=== PATIENT | female | born 1985 | race Caucasian/White ===

== ENCOUNTER 2019-12-31 08:09 | Outpatient (CLI) | payer OTHER, SELFPAY ==
--- NOTE | 2019-12-31 08:28 | ECG_ITS ---
Measurements Intervals [place] Rate: 89 P: 41 MA: 165 QRS: 40 QRSD: 78 T: 21 QT: 335 QTc: 408 Interpretive Statements SINUS RHYTHM BASELINE ARTIFACT- I, II, III, AVR, AVL, AVF NORMAL ECG Electronically Signed On 12-31-2019 8:53:44 CDT by Jeffrey Moise D.O.
== END 2019-12-31 08:10 | disposition home or self-care (01) ==
PROVIDERS: Visit Provider Obstetrics & Gynecology
DX: Z01.818 Encounter for other preprocedural examination (principal); N94.6 Dysmenorrhea, unspecified; Z87.42 Personal history of other diseases of the female genital tract
CPT/HCPCS: 36415; 86850; 86900; 86901; 93005

== ENCOUNTER 2020-01-05 00:40 | Outpatient (CLI) | payer OTHER, SELFPAY ==
[2020-01-05 18:37] LABS: SARS-CoV-2 RNA PCR Negative
== END 2020-01-05 00:41 | disposition home or self-care (01) ==
LOC: ANHCOVIDDT 00:41
PROVIDERS: Visit Provider Obstetrics & Gynecology
DX: Z01.812 Encounter for preprocedural laboratory examination (principal); Z20.828 Contact with and (suspected) exposure to other viral communicable diseases
CPT/HCPCS: 87635; C9803; U0003

== ENCOUNTER 2020-01-08 00:56 | Day surgery (SDC) | payer OTHER, SELFPAY ==
[2019-12-25 16:40] VITALS: BMI 39.0
[2020-01-08] VITALS (15 sets, daily range): BP systolic 105–128; BP diastolic 56–82; PULSE 70–107; RESP 13–20; TEMP 36.1–36.9; O2SAT 94–100
--- NOTE | 2020-01-08 06:53 | WPDANESEPPF ---
Anes - Initial Pre Proc Eval Procedure: Operation Date: 01/08/20 07:30 Proposed Procedures p Total Laparoscopic Hysterectomy With Right Salpingo-Oophorectomy - Glenna Zhang MD Date/Time: 01/08/20 06:53 Surgeon: Glenna Zhang MD Pre Op Diagnosis: Dymenorrhea Patient Data Age: 34 Gender: F Height: 5 ft 3 in Weight: 100 kg Allergies Allergy/AdvReac Type Severity Reaction Status Date / Time amoxicillin Allergy Intermediate Rash Verified 12/25/19 16:14 clindamycin Allergy Intermediate hives Verified 12/25/19 16:14 Penicillins Allergy Intermediate Hives / Verified 12/25/19 16:14 Red Face azithromycin AdvReac Mild diarrhea Verified 12/25/19 16:14 Home Medications Medication Instructions Recorded Confirmed Type AZO Urinary Tract Defense 1 caplet PO DAILY 12/25/19 12/25/19 History ascorbate calcium (vitamin C) 500 mg PO DAILY 12/25/19 12/25/19 History cyclobenzaprine 10 mg PO PRN PRN 12/25/19 12/25/19 History inulin-chromium picolinate [Fiber 1 tablet PO DAILY 12/25/19 12/25/19 History Select Gummies] magnesium 250 mg PO DAILY 12/25/19 12/25/19 History multivit with min-folic acid 1 mcg PO DAILY 12/25/19 12/25/19 History [Adult Multivitamin Gummies] omeprazole 20 mg PO PRN PRN 12/25/19 12/25/19 History vitamin B complex [B 1 tablet PO DAILY 12/25/19 12/25/19 History Complex-Vitamin B12] Patient hx anesthesia problems: none Family hx anesthesia problems: none PMFSH Past Medical History Medical History Asthma GERD (gastroesophageal reflux disease) Seizure disorder Tobacco abuse Social History Social History Smoking status: Heavy tobacco smoker Tobacco type: cigarettes Second hand tobacco smoke exposure: No Additional smoking assessment comments: 1 ppd x 22 years Alcohol intake: current Drinks per week: 1 Alcohol use details: 1 drink every 3 weeks Substance use: never Living arrangements: with family Spiritual care concerns: No Anes - Eval Final PreProcedure Day of Procedure 01/08/20 06:53 Patient weight: obese Heart: regular rate and rhythm Lungs: decreased breath sounds Airway: Mallampati scale class II Neurological: alert and oriented Last oral intake: >/= 8 hours ASA classification: III Emergent: no Anesthetic plan: proceed Anesthesia type and monitoring: general ETT and standard monitoring Informed Consent: The patient's anesthetic plan and its attendant risks and benefits were discussed with the patient/family/POA. Questions were solicited and answers provided to the satisfaction of the patient/family/POA.
[2020-01-08] MEDS: ACETAMINOPHEN 500 MG TABLET 1000 MG PO (07:00)
[2020-01-08] MEDS: KETOROLAC 15 MG/ML VIAL (*BKC) IV PUSH (07:00)
[2020-01-08] MEDS: LACTATED RINGERS 1,000 ML 30 ML IV CONT ×2 (07:05→09:20)
--- NOTE | 2020-01-08 07:09 | WPDHPUPDATE1 ---
History and Physical Update Update Date/Time: 01/08/20 07:09 History and Physical has been reviewed, including an updated exam of the patient. There are NO changes in the patient's condition. Risks, benefits, and alternatives have been discussed and questions answered. Patient agrees to proceed with procedure.
[2020-01-08] MEDS: SCOPOLAMINE 1.5 MG PATCH TRANSDERM (07:20)
[2020-01-08] MEDS: ceFAZolin 2 GM/D5W 50 ML 2 GM/50 ML BAG IVPB (07:29)
--- NOTE | 2020-01-08 09:24 | P.OP_ITS ---
Procedure Note - Detailed Date of procedure: 01/08/20 Pre-op diagnosis: Dymenorrhea Severe menorrhagia, pelvic pain, right ovarian cyst Post-op diagnosis: same Procedure performed: Total laparoscopic hysterectomy right salpingo- oophorectomy Description of procedure: The patient was taken to the operating room. She was prepped and draped in the dorsal lithotomy position. A speculum was placed in the vagina. The cervix was grasped with a tenaculum. Stay sutures were placed at 3 and 9:00 a.m. of 0 Vicryl. The stay sutures were brought through the Nini up. The DIONICIO manipulator was placed in the vagina with a fixed Nini cup. The cup was then pushed up around the cervix. The sutures were tied to the handle of the DIONICIO manipulator. A 5 mm incision was made on the abdominal skin of the left upper quadrant using a scalpel. A 5 mm trocar was inserted into the intra-abdominal cavity under direct visualization the scope. Pneumoperitoneum was achieved. An 11 mm incision was made in the left lower quadrant of the abdomen with a scalpel. A 11 mm trocar was inserted into the intra-abdominal cavity under direct visualization the scope. A 5 mm periumbilical incision was made. A 5 mm scope was placed into the intra-abdominal cavity under direct visualization of the scope. The ureters were identified. The ureters were observed to be away from the infundibulopelvic ligaments. The infundibulopelvic ligament was isolated, cauterized, and transected with LigaSure cautery On the right the suspensory ligament of the ovary was cauterized and transected on the left along with the fallopian tube and round ligament. The para ovarian tissue along the pelvic sidewall was cauterized and transected On the right using the ligature cautery. The round ligaments were cauterized and transected bilaterally with LigaSure cautery. The broad ligaments were cauterized and transected along the lateral aspects of the uterus down the level of the uterine arteries. A bladder flap was created using sharp and blunt dissection. The ureters were dissected out bilaterally down to the level of the uterine arteries. The could be visualized from the pelvic brim down the uterine arteries. Staying very close to the cervix the parametrium was cauterized transected in a stepwise fashion down to the level of the Nini cup. The Bladder flap was moved distally over the Nini cup using sharp and blunt dissection. The cup was visualized and a complete 360 degree papillary around the cervix. An incision was made with unipolar cautery down under the Nini cup creating a colpotomy incision all the way around the cerv ix. The uterus tubes and ovaries were taken out through the vagina. A pneumo occluder was placed in the vagina. The vagina was closed with 0 V lock suture in a running fashion. The ureters were identified again and found to be intact elevated and the uterine arteries. The pelvis was irrigated with a copious amount of antibiotic irrigation. The pneumoperitoneum was reduced. The trocars were removed. The skin was closed subcuticular 4 Monocryl covered with Dermabond. The pneumo occluder was removed from the vagina. The vagina was irrigated with Betadine. The patient tolerated the procedure well. She was taken to the recovery room in stable condition. Sponge lap and needle counts were correct x2. Anesthesia: GETA Surgeon: Glenna Zhang MD Estimated blood loss (mL): 200 Drains: No Packing: No Pathology: yes Complications: No immediate complications Condition: stable Disposition: PACU Findings: Grossly normal-appearing uterus tubes and left ovary. Cystic right ovary
[2020-01-08] MEDS: fentaNYL CITRATE INJ (*CRX) 100 MCG/2 ML VIAL 25 MCG IV PUSH ×3 (09:34→10:01)
[2020-01-08] MEDS: HYDROcodone/acetaminophen (*CRX) 10-325 MG TABLET 1 TAB PO (11:23)
[2020-01-08] MEDS: HYDROcodone/acetaminophen (*CRX) 5-325 MG TABLET 1 TAB PO ×2 (16:39→22:40)
[2020-01-08] MEDS: IBUPROFEN 600 MG TABLET PO ×2 (16:40→22:40)
[2020-01-09 03:00] VITALS: BP 110/71; PULSE 102; RESP 16; TEMP 36.7
[2020-01-09] MEDS: HYDROcodone/acetaminophen (*CRX) 5-325 MG TABLET 1 TAB PO (06:56)
[2020-01-09] MEDS: IBUPROFEN 600 MG TABLET PO (06:57)
[2020-01-09] MEDS: ASCORBIC ACID 500 MG TABLET PO (06:58)
[2020-01-09] MEDS: VITAMIN B COMPLEX CAPSULE 1 CAP PO (06:58)
[2020-01-09] MEDS: MULTIVITS W-FE,MIN CHEWABLE TABLET 1 TABLET PO (06:58)
[2020-01-09 08:10] VITALS: BP 126/77; PULSE 90; RESP 16; TEMP 36.6; O2SAT 97
--- NOTE | 2020-01-09 10:13 | PC.NURSE ---
Offered pt the flu shot before discharge from hospital. Pt declines.
--- NOTE | 2020-01-09 11:06 | WPDANESPN ---
Anes - Prog Note Post-Op Date/Time: 01/09/20 11:06 Cardiovascular status: normal Respiratory status: normal Airway patency: baseline Mental status: baseline Post-Op hydration status: normal Vital Signs: Last Vital Signs Temp 36.6 C 01/09/20 08:10 Pulse 90 01/09/20 08:10 Resp 16 01/09/20 08:10 BP 126/77 01/09/20 08:10 Pulse Ox 97 01/09/20 08:10 Pain Score (VAS): 2/10 Post-procedural complaints: none Patient Feedback: Patient satisfied with anesthetic care.
--- NOTE | 2020-01-09 13:12 | PM.OBPNVD ---
OB - PN: Subj Subjective Date/time seen: 01/09/20 13:12 OB - PN A/P Time Spent With Patient Time: Total time spent is greater than 50% in coordination of care (as documented) at patient's floor/unit and/or counseling patient: Time with patient: 15 - 25 minutes Exam Const: General: cooperative, healthy appearing, comfortable and no acute distress Resp: Auscultation: no crackles, no rales, no rhonchi and no wheezes Cardio: Rhythm: regular rhythm Heart sounds: no click and no murmurs GI: Inspection: non-distended Auscultation: normal bowel sounds Other: Incisions - CDI Extrem: General: normal to inspection, no pedal edema and no calf tenderness
== END 2020-01-09 13:37 | disposition home or self-care (01) ==
LOC: ANHSURGERY 06:28 → ANHOB2 11:14
PROVIDERS: Visit Provider Obstetrics & Gynecology
PROC: 0UT9FZZ Resection of Uterus, Via Natural or Artificial Opening With Percutaneous Endoscopic Assistance (ICD-10-PCS; principal; 2020-01-08 07:30)
DX: N80.0 Endometriosis of uterus (principal); D26.0 Other benign neoplasm of cervix uteri; N83.01 Follicular cyst of right ovary; K21.9 Gastro-esophageal reflux disease without esophagitis; J45.909 Unspecified asthma, uncomplicated; F17.200 Nicotine dependence, unspecified, uncomplicated
CPT/HCPCS: 58571; 87635; 88307; 99199; A9270; C9803; J0690; J1100; J1885; J2250; J2405; J2704; J2710; J3010; J7030; J7120; U0003

== ENCOUNTER 2020-08-02 07:51 | Outpatient (CLI) | payer OTHER, SELFPAY ==
[2020-08-02 08:36] LABS: Basophils Absolute Auto 0.1 K/mm3 (0.0-0.1); Basophils Percent Auto 0.7 % (0.2-1.2); Eosinophils Absolute Auto 0.3 K/mm3 (0-0.3); Eosinophils Percent Auto 2.3 % (0-4.4); Hematocrit 40.8 % (37.0-47.0); Hemoglobin 13.6 g/dL (12.0-15.0); Immature Granulocyte Absolute 0.08 K/mm3 (0.00-0.031); Immature Granulocyte Percent A 0.6 % (0-0.5); Lymphocytes Absolute Auto 3.34 K/mm3 (0.9-3.2); Lymphocytes Percent Auto 26.1 % (18.3-44.2); Mean Corpuscular HGB Conc 33.3 g/dl (32-36); Mean Corpuscular Hemoglobin 29.2 pg (26-34); Mean Corpuscular Volume 87.6 fl (80-100); Mean Platelet Volume 9.1 fl (7.4-10.4); Monocytes Absolute Auto 1.1 K/mm3 (0.1-0.6); Monocytes Percent Auto 8.7 % (2.6-8.5); Neutrophils Absolute Auto 7.9 K/mm3 (1.3-6.7); Neutrophils Percent Auto 61.6 % (45.5-73.1); Platelet Count Result 322 k/mm3 (150-375); Red Blood Count 4.66 M/mm3 (4.2-5.4); White Blood Count 12.8 K/mm3 (4.5-10.0)
[2020-08-02 08:49] LABS: Alanine Aminotransferase 19 U/L (4-35); Albumin Level 4.4 g/dL (3.5-5.1); Alkaline Phosphatase 70 U/L (38-126); Anion Gap 10 mmol/L (8-16); Aspartate Amino Transferase 34 U/L (14-36); Bilirubin,Total 0.4 mg/dL (0.2-1.3); Blood Urea Nitrogen 12 mg/dL (7-17); Calcium 9.3 mg/dL (8.4-10.2); Carbon Dioxide 21 mmol/L (22-30); Chloride 108 mmol/L (98-107); Cholesterol 169 mg/dL (0-200); Estimated Glomerular Filt Rate > 60; Glucose 111 mg/dL (65-105); HDL Direct 40 mg/dL; Potassium 4.2 mmol/L (3.4-5.0); Sodium 139 mmol/L (137-145); Triglycerides 177 mg/dL (<150)
[2020-08-02 09:00] LABS: LDL Cholesterol Direct 93 mg/dL
[2020-08-02 09:55] LABS: Folic Acid 14.6 ng/mL (2.76->20)
[2020-08-02 12:30] LABS: Vitamin D 25 Hydroxy 34.7 ng/mL
== END 2020-08-02 07:52 | disposition home or self-care (01) ==
PROVIDERS: PCP Nurse Practitioner Family; Visit Provider Nurse Practitioner Family
DX: Z00.00 Encounter for general adult medical examination without abnormal findings (principal); E55.9 Vitamin D deficiency, unspecified
CPT/HCPCS: 36415; 80053; 80061; 82306; 82607; 82746; 84443; 85025

== ENCOUNTER 2020-09-26 16:00 | Outpatient (CLI) | payer OTHER, SELFPAY ==
--- NOTE | 2020-10-13 10:47 | WPDHOMESLEEP ---
Sleep Study - Home Unattended Date of Study: 09/26/20 Ordering Provider: Edith Reynolds NP Interpreting Provider: Donna Knapp MD Home Sleep Study Type: Watch PAT Height: 1.6 m Weight: 93.894 kg Body Mass Index: 36.6 Neck Circumference (inches): 15.25 [place]: 15 Reason for Sleep Study Hypersomnia, snoring, nonrestorative sleep Sleep History Iris Orantes is a 35 year old female with poor quality sleep. She never feels that she gets enough sleep. Her body aches all over. She wakes up with headaches at least 3 days out of the week. Several family members have obstructive sleep apnea. She occasionally awakens from sleep feeling short of breath. She occasionally awakens at night with heartburn, belching or coughing. She frequently snores and she frequently snores loudly enough that others complain. She occasionally has trouble sleeping with a cold. She rarely wakes up gasping for breath at night. She frequently sweats excessively at night. She occasionally notices her heart pounding or beating irregularly at night. She occasionally falls asleep during the day. She rarely falls asleep involuntarily. She occasionally falls asleep while driving. She does not fall asleep while exerting physical effort. She frequently has loss of muscle tone with strong emotion. She constantly has daytime difficulties due to excessive sleepiness. She does not feel paralyzed on waking or falling asleep. She constantly has vivid dreamlike scenes upon awakening or falling asleep. She does not feel afraid to go to sleep. She constantly has nightmares, constantly remembers her dreams and constantly has racing thoughts. She constantly feels sad, depressed and anxious. She constantly has muscular tension. She constantly notices parts of her body jerking and she constantly kicks at night. She constantly has crawling and aching feelings in her legs and leg pain during the night. She occasionally has morning jaw pain. She rarely grinds her teeth during sleep. She constantly is bothered by pain during the day. She frequently is awakened by pain during the night. She constantly wakes up feeling stiff in the morning. She constantly wakes up with sore achy muscles and pain in the neck and spine. She has fatigue and depression. She reports a 25 lb weight loss in the last year. normal bedtime is 9:00 p.m. falling asleep within 30 minutes but occasionally it takes as long as an hour for her to fall asleep. She typically wakes 10-12 times at night. She will go to the bathroom, get a drink, sometimes take her dogs outside. She wakes for the day at 4:00 a.m.. On the weekends she goes to bed slightly later, between 10 and 11:00 p.m. and wakes between 5 and 7 in the morning. She does not have a social life because of her excessive sleepiness. Habits: Tobacco 1 pack a day. Caffeine 2 cups, 20 oz each. Alcohol 3-4 beverages a week. No recreational drugs. [facility] Past Medical History Medical History (Updated 10/13/20 @ 11:02 by Donna Knapp MD) Arthritis Asthma BMI 37.0-37.9, adult Depression Dog bite of chin Dog bite of extremity Dog bite of forearm Eczema Fatty liver Frequent headaches GERD (gastroesophageal reflux disease) Hypersomnia IBS (irritable bowel syndrome) Seasonal allergies Seizure disorder Tobacco abuse Vitamin D deficiency Surgical History Surgical History (Updated 10/13/20 @ 10:54 by Donna Knapp MD) History of hysterectomy History of rotator cuff surgery Family History Family History (Updated 10/13/20 @ 10:54 by Donna Knapp MD) Father Diabetes mellitus Hypertension Mother Asthma Diabetes mellitus Hypertension Depression Heart disease Sibling Asthma Grandparent Diabetes mellitus Hypertension Heart disease Grandparent Hypertension Heart disease Other Obstructive sleep apnea Social History Social History Smoking s
[2020-10-13 11:14] VITALS: BMI 36.6
== END 2020-09-26 16:07 | disposition home or self-care (01) ==
LOC: ANHCSM 09-29 10:00
PROVIDERS: PCP Nurse Practitioner Family; Visit Provider Nurse Practitioner Family
DX: G47.31 Primary central sleep apnea (principal); G47.10 Hypersomnia, unspecified; R06.83 Snoring; Z68.36 Body mass index [BMI] 36.0-36.9, adult
CPT/HCPCS: 95800

== ENCOUNTER → 2020-11-06 08:55 | Outpatient (CLI) | payer OTHER, SELFPAY ==
--- NOTE | 2020-11-30 20:25 | WPDSLEEPSTUD ---
Sleep Study Date of Study: 11/06/20 Ordering Provider: Edith Reynolds NP Interpreting Physician: Donna Knapp MD Sleep Study Type: CPAP Titration Height: 1.6 m Weight: 94.347 kg Body Mass Index: 36.8 Neck Circumference (inches): 15.25 [place]: 15 Reason for Sleep Study Hypersomnia 09/26/2020 mild central sleep apnea diagnosed on home sleep test/ WatchPat, central central apnea with an AHI of 8.5, desaturation to 88%, snoring, central AHI is 6.8, now here for a CPAP titration. Sleep History Iris Orantes is a 35 year old female with poor quality sleep. She never feels that she gets enough sleep. Her body aches all over. She wakes up with headaches at least 3 days out of the week. Several family members have obstructive sleep apnea. She occasionally awakens from sleep feeling short of breath. She occasionally awakens at night with heartburn, belching or coughing. She frequently snores and she frequently snores loudly enough that others complain. She occasionally has trouble sleeping with a cold. She rarely wakes up gasping for breath at night. She frequently sweats excessively at night. She occasionally notices her heart pounding or beating irregularly at night. She occasionally falls asleep during the day. She rarely falls asleep involuntarily. She occasionally falls asleep while driving. She does not fall asleep while exerting physical effort. She frequently has loss of muscle tone with strong emotion. She constantly has daytime difficulties due to excessive sleepiness. She does not feel paralyzed on waking or falling asleep. She constantly has vivid dreamlike scenes upon awakening or falling asleep. She does not feel afraid to go to sleep. She constantly has nightmares, constantly remembers her dreams and constantly has racing thoughts. She constantly feels sad, depressed and anxious. She constantly has muscular tension. She constantly notices parts of her body jerking and she constantly kicks at night. She constantly has crawling and aching feelings in her legs and leg pain during the night. She occasionally has morning jaw pain. She rarely grinds her teeth during sleep. She constantly is bothered by pain during the day. She frequently is awakened by pain during the night. She constantly wakes up feeling stiff in the morning. She constantly wakes up with sore achy muscles and pain in the neck and spine. She has fatigue and depression. She reports a 25 lb weight loss in the last year. normal bedtime is 9:00 p.m. falling asleep within 30 minutes but occasionally it takes as long as an hour for her to fall asleep. She typically wakes 10-12 times at night. She will go to the bathroom, get a drink, sometimes take her dogs outside. She wakes for the day at 4:00 a.m.. On the weekends she goes to bed slightly later, between 10 and 11:00 p.m. and wakes between 5 and 7 in the morning. She does not have a social life because of her excessive sleepiness. Habits: Tobacco 1 pack a day. Caffeine 2 cups, 20 oz each. Alcohol 3-4 beverages a week. No recreational drugs. [facility] Past Medical History Medical History (Updated 10/13/20 @ 11:02 by Donna Knapp MD) Arthritis Asthma BMI 37.0-37.9, adult Depression Dog bite of chin Dog bite of extremity Dog bite of forearm Eczema Fatty liver Frequent headaches GERD (gastroesophageal reflux disease) Hypersomnia IBS (irritable bowel syndrome) Seasonal allergies Seizure disorder Tobacco abuse Vitamin D deficiency Surgical History Surgical History (Updated 10/13/20 @ 10:54 by Donna Knapp MD) History of hysterectomy History of rotator cuff surgery Family History Family History (Updated 10/13/20 @ 10:54 by Donna Knapp MD) Father Diabetes mellitus Hypertension Mother Asthma Diabetes mellitus Hypertension Depression Heart disease Sibling Asthma Grandparent Diabetes mellitus Hypertension Heart disease Grandparent Hypertensio
[2020-11-30 20:27] VITALS: BMI 36.8
== END ==
PROVIDERS: PCP Nurse Practitioner Family; Visit Provider Nurse Practitioner Family
DX: G47.31 Primary central sleep apnea (principal)
CPT/HCPCS: 95811

== ENCOUNTER 2021-02-10 07:16 | Outpatient (CLI) | payer OTHER, SELFPAY ==
[2021-02-10 08:20] LABS: Hemoglobin A1C 5.8 % (<5.7)
[2021-02-10 08:22] LABS: Anion Gap 11 mmol/L (8-16); Blood Urea Nitrogen 13 mg/dL (7-17); Calcium 9.9 mg/dL (8.4-10.2); Carbon Dioxide 25 mmol/L (22-30); Chloride 104 mmol/L (98-107); Estimated Glomerular Filt Rate > 60; Glucose 105 mg/dL (65-110); Potassium 4.3 mmol/L (3.4-5.0); Sodium 140 mmol/L (137-145)
[2021-02-13 07:17] LABS: FSH 7.4 mIU/mL (***); LH 5.4 mIU/mL (***)
[2021-02-14 13:59] LABS: Testosterone Free 4.9 pg/mL (0.1-6.4); Testosterone Total 24 ng/dL (2-45)
[2021-02-17 17:57] LABS: Estradiol, Ultrasensitive 21 pg/mL
== END 2021-02-10 07:17 | disposition home or self-care (01) ==
LOC: ANHLAB 07:18
PROVIDERS: PCP Nurse Practitioner Family; Visit Provider Nurse Practitioner Family
DX: R73.01 Impaired fasting glucose (principal); N95.1 Menopausal and female climacteric states
CPT/HCPCS: 36415; 80048; 82670; 83001; 83002; 83036; 84402; 84403

== ENCOUNTER 2021-10-08 07:33 | Outpatient (CLI) | payer OTHER, SELFPAY ==
[2021-10-08 09:33] LABS: Basophils Absolute Auto 0.1 K/mm3 (0.0-0.1); Basophils Percent Auto 0.7 % (0.2-1.2); Eosinophils Absolute Auto 0.3 K/mm3 (0-0.3); Eosinophils Percent Auto 1.9 % (0-4.4); Hemoglobin 14.2 g/dL (12.0-15.0); Immature Granulocyte Absolute 0.07 K/mm3 (0.00-0.031); Immature Granulocyte Percent A 0.5 % (0-0.5); Lymphocytes Absolute Auto 3.59 K/mm3 (0.9-3.2); Lymphocytes Percent Auto 27.8 % (18.3-44.2); Mean Corpuscular HGB Conc 33.8 g/dl (32-36); Mean Corpuscular Hemoglobin 29.6 pg (26-34); Mean Corpuscular Volume 87.7 fl (80-100); Mean Platelet Volume 9.8 fl (7.4-10.4); Monocytes Percent Auto 7.6 % (2.6-8.5); Neutrophils Absolute Auto 7.9 K/mm3 (1.3-6.7); Neutrophils Percent Auto 61.5 % (45.5-73.1); Platelet Count Result 349 k/mm3 (150-375); Red Blood Count 4.79 M/mm3 (4.2-5.4); Red Cell Distribution Width 12.8 % (11.5-14.5); White Blood Count 12.9 K/mm3 (4.5-10.0)
[2021-10-08 09:49] LABS: Anion Gap 7 mmol/L (8-16); Blood Urea Nitrogen 13 mg/dL (7-17); Calcium 9.1 mg/dL (8.4-10.2); Carbon Dioxide 25 mmol/L (22-30); Chloride 106 mmol/L (98-107); Estimated Glomerular Filt Rate > 60; Glucose 94 mg/dL (65-110); Potassium 4.3 mmol/L (3.4-5.0); Sodium 138 mmol/L (137-145)
[2021-10-08 09:52] LABS: Hemoglobin A1C 5.4 % (<5.7)
== END 2021-10-08 07:34 | disposition home or self-care (01) ==
PROVIDERS: PCP Nurse Practitioner Family; Visit Provider Family Medicine
DX: R73.01 Impaired fasting glucose (principal)
CPT/HCPCS: 36415; 80048; 83036; 85025

== ENCOUNTER 2021-11-30 04:41 | Emergency (ER) | payer OTHER, SELFPAY ==
[2021-11-30 04:45] VITALS: BP 147/92; PULSE 94; RESP 17; TEMP 36.5; O2SAT 98
--- NOTE | 2021-11-30 05:02 | ED.DENTAL ---
HPI - Dental/Oral General Chief complaint: Dental/Oral Stated complaint: toothache Time Seen by Provider: 11/30/21 04:57 History of Present Illness HPI Narrative: 36-year-old female presents emergency room secondary to dental pain. She had a redo of a root canal to the left upper molar last week. Now she is having increasing pain to the point she cannot tolerate it. She is had some significant issues with this area of her teeth. 1 time she had such an infection that got into the bone . He was placed on 3 different antibiotics. She is currently taking ciprofloxacin. She states she been taking Tylenol and Advil to try to help with the pain but is unable to control the pain at this time. Pain is hurting on the way up to the left side of her cheek. Denies any chills or fevers. She drove her self here to the emergency department. Root canal was done by a local practitioner. Related Data Home Medications Medication Instructions Recorded Confirmed albuterol sulfate 90 mcg/actuation 1 puff inhalation Q4H PRN 07/29/20 10/09/21 aerosol inhaler Shortness Of Breath ciprofloxacin HCl 500 mg tablet mg 11/30/21 estradiol 2 mg tablet mg 11/30/21 Allergies Allergy/AdvReac Type Severity Reaction Status Date / Time amoxicillin Allergy Intermediate Rash Verified 11/30/21 04:49 clindamycin Allergy Intermediate hives Verified 11/30/21 04:49 Penicillins Allergy Intermediate Hives / Verified 11/30/21 04:49 Red Face azithromycin AdvReac Mild diarrhea Verified 11/30/21 04:49 Review of Systems Review of Systems: CONSTITUTIONAL: Denies fever, chills, or sweats. EYES: Denies visual changes, redness, or discharge. ENT: Denies rhinorrhea, congestion, sore throat, or otalgia. Severe tooth ache left upper molar CARDIOVASCULAR: Denies chest pain, palpitations, or edema. RESPIRATORY: Denies cough or dyspnea. GASTROINTESTINAL: Denies abdominal pain, nausea, vomiting, or diarrhea. GENITOURINARY: Denies dysuria or hematuria. SKIN: Denies rash or itching. MUSCULOSKELETAL: Denies back pain, joint pain, or myalgia. NEUROLOGIC: Denies headache, numbness, or weakness. PSYCHIATRIC: Denies anxiety or depression. [facility] Past Medical History Medical History Anxiety Arthritis Asthma BMI 32.0-32.9,adult BMI 37.0-37.9, adult Depression Dog bite of chin Dog bite of extremity Dog bite of forearm Eczema Elevated fasting glucose Fatty liver Frequent headaches GERD (gastroesophageal reflux disease) Hyperlipidemia Hypersomnia IBS (irritable bowel syndrome) Leukocytosis Menopausal symptoms Pain, joint, multiple sites Seasonal allergies Seizure disorder Tobacco abuse Vitamin D deficiency Surgical History Surgical History History of hysterectomy History of rotator cuff surgery Family History Family History Father Diabetes mellitus Hypertension Mother Asthma Diabetes mellitus Hypertension Depression Heart disease Sibling Asthma Grandparent Diabetes mellitus Hypertension Heart disease Grandparent Hypertension Heart disease Other Obstructive sleep apnea Social History Social History Tobacco type: cigarettes Second hand tobacco smoke exposure: No Additional smoking assessment comments: 1 ppd x 22 years Alcohol intake: current Drinks per week: 1 Alcohol use details: 1 drink every 3 weeks Substance use: never Spiritual care concerns: No Exam Narrative: APPEARANCE: Well appearing, no pain or distress, well-nourished. Head Normocephalic and atraumatic. EYES: PERRLA/EOMI, conjunctivae clear. NOSE: Normal with no drainage EARS:TMS clear with [place], with good light reflex. THROAT: Pharynx clear, no exudate. Tenderness to the left upper molar. Some tenderness to the left cheek. No absc
[2021-11-30] MEDS: KETOROLAC (*BKC) 60 MG/2 ML VIAL IM (05:06)
== END 2021-11-30 05:53 | disposition home or self-care (01) ==
PROVIDERS: Emergency Provider Emergency Medicine; PCP Nurse Practitioner Family
DX: K04.7 Periapical abscess without sinus (principal); K08.89 Other specified disorders of teeth and supporting structures; F41.9 Anxiety disorder, unspecified; M19.90 Unspecified osteoarthritis, unspecified site; J45.909 Unspecified asthma, uncomplicated; F32.9 Major depressive disorder, single episode, unspecified; K21.9 Gastro-esophageal reflux disease without esophagitis; E78.5 Hyperlipidemia, unspecified; G40.909 Epilepsy, unspecified, not intractable, without status epilepticus
CPT/HCPCS: 96372; 99283; J1885

== ENCOUNTER 2022-10-07 09:33 | Emergency (ER) | payer BC, SELFPAY ==
--- NOTE | ~2022-10-07 | CT_ITS ---
EXAMINATION: CT BRAIN W/O DATE: 10/07/2022 11:55 INDICATION: Status post fall. Mastoid tenderness. TECHNIQUE: Computed tomography (CT) of the head was performed without and with 100 cc Omnipaque 350 i ntravenous contrast. The dose-length product was 1210.67 mGy-cm. Automated exposure control and itera tive reconstruction technique were employed. COMPARISON: CT dated 01/31/2015 FINDINGS: Normal brain parenchymal volume for age. Normal bradley-white differentiation. No acute intrac ranial hemorrhage, infarction, mass or mass effect. No ventriculomegaly or midline shift. Midline sagittal images demonstrate a normal corpus callosum, c raniovertebral junction and sella turcica. Basilar cisterns are patent. Paranasal sinuses and mastoids are pneumatized. No depressed skull fractures. IMPRESSION: 1. No acute intracranial abnormality. Reviewed, dictated and finalized at location L.
[2022-10-07 09:40] VITALS: BP 142/89; PULSE 92; RESP 18; TEMP 36.5; O2SAT 99
--- NOTE | 2022-10-07 10:52 | PC.NURSE ---
cancelled preg test due to PMH of hysterectomy
--- NOTE | 2022-10-07 11:09 | ED.EAR ---
HPI - Ear Problem General Chief complaint: Ear Stated complaint: left ear pain Time Seen by Provider: 10/07/22 10:19 History of Present Illness HPI Narrative: 37-year-old female reports for evaluation for left ear drainage x3 weeks. Patient states 3 weeks ago, she had a mechanical fall and tripped on a stair, fell on the ground and hit her head, denies LOC. States later that evening she began having clear fluid drained out of her ear which has been constant since. She denies ear pain. She does report dizziness that is worse with standing and improved with sitting. She reports chronic issues with her ears and was advised to get tubes placed but never did. She denies LOC, neck pain, fever, chest pain or shortness of breath, vomiting. She does report nausea. Due to extensive allergies, she was started on doxycycline. Doxycycline, Zofran and meclizine sent to pharmacy. Encourage patient follow-up with PCP within the following week for reevaluation. Strict ED return precautions discussed. Patient agrees to the plan verbalized understanding. Discharged in stable condition. Related Data Home Medications Medication Instructions Recorded Confirmed albuterol sulfate 90 mcg/actuation 1 puff inhalation Q4H PRN 07/29/20 04/29/22 aerosol inhaler Shortness Of Breath estradiol 2 mg tablet mg 11/30/21 04/29/22 Allergies Allergy/AdvReac Type Severity Reaction Status Date / Time amoxicillin Allergy Intermediate Rash Verified 10/07/22 11:12 clindamycin Allergy Intermediate hives Verified 10/07/22 11:12 Penicillins Allergy Intermediate Hives / Verified 10/07/22 11:12 Red Face azithromycin AdvReac Mild diarrhea Verified 10/07/22 11:12 Review of Systems Review of Systems: CONSTITUTIONAL: Denies fever, chills EYES: Denies visual changes, redness, or discharge. ENT: See HPI CARDIOVASCULAR: Denies chest pain, palpitations, or edema. RESPIRATORY: Denies cough or dyspnea. GASTROINTESTINAL: Denies abdominal pain, nausea, vomiting, or diarrhea. GENITOURINARY: Denies dysuria or hematuria. SKIN: Denies rash or itching. MUSCULOSKELETAL: Denies back pain, joint pain, or myalgia. NEUROLOGIC: Denies headache, numbness, dizziness, or weakness. PSYCHIATRIC: Denies anxiety or depression. [facility] Past Medical History Medical History Anxiety Arthritis Asthma BMI 32.0-32.9,adult BMI 35.0-35.9,adult BMI 37.0-37.9, adult Depression Dog bite of chin Dog bite of extremity Dog bite of forearm Eczema Elevated fasting glucose Fatty liver Frequent headaches GERD (gastroesophageal reflux disease) Hyperlipidemia Hypersomnia IBS (irritable bowel syndrome) Leukocytosis Menopausal symptoms Obesity (BMI 30-39.9) Pain, joint, multiple sites Perforation of left tympanic membrane (~02/2022) multiple scars, small perforation left TM Rhinitis with nasal obstructive symptoms on the right Seasonal allergies Seizure disorder Tobacco abuse Vitamin D deficiency Surgical History Surgical History History of hysterectomy History of rotator cuff surgery Family History Family History Father Diabetes mellitus Hypertension Mother Asthma Diabetes mellitus Hypertension Depression Heart disease Sibling Asthma Grandparent Diabetes mellitus Hypertension Heart disease Grandparent Hypertension Heart disease Other Obstructive sleep apnea Social History Social History Smoking packs per day: 1 Smoking cigarettes per day: 20.0 Years smoked: 25 Smoking pack-years: 25.00 Smoking status: Smoker, status unknown Tobacco type: cigarettes Second hand tobacco smoke exposure: No Additional smoking assessment comments: 1 ppd x 22 years Alcohol intake: current Drinks per week: 1 Alcohol use detail
[2022-10-07] MEDS: SODIUM CHLORIDE 0.9% IV 1,000 ML 999 ML IV CONT (11:13)
[2022-10-07] MEDS: ONDANSETRON INJ 4 MG/2 ML VIAL IV PUSH (11:14)
[2022-10-07] MEDS: MECLIZINE HCL 25 MG TABLET PO (11:14)
[2022-10-07 11:17] LABS: Basophils Absolute Auto 0.1 K/mm3 (0.0-0.1); Basophils Percent Auto 0.9 % (0.2-1.2); Eosinophils Absolute Auto 0.2 K/mm3 (0-0.3); Eosinophils Percent Auto 1.5 % (0-4.4); Hematocrit 44.1 % (37.0-47.0); Immature Granulocyte Absolute 0.09 K/mm3 (0.00-0.031); Immature Granulocyte Percent A 0.6 % (0-0.5); Lymphocytes Absolute Auto 3.27 K/mm3 (0.9-3.2); Lymphocytes Percent Auto 23.2 % (18.3-44.2); Mean Corpuscular Hemoglobin 30.2 pg (26-34); Mean Corpuscular Volume 88.7 fl (80-100); Mean Platelet Volume 8.9 fl (7.4-10.4); Monocytes Absolute Auto 0.8 K/mm3 (0.1-0.6); Monocytes Percent Auto 5.9 % (2.6-8.5); Neutrophils Absolute Auto 9.6 K/mm3 (1.3-6.7); Neutrophils Percent Auto 67.9 % (45.5-73.1); Platelet Count Result 353 k/mm3 (150-375); Red Blood Count 4.97 M/mm3 (4.2-5.4); Red Cell Distribution Width 12.5 % (11.5-14.5); White Blood Count 14.1 K/mm3 (4.5-10.0)
[2022-10-07 11:31] LABS: Alanine Aminotransferase 21 U/L (6-35); Alkaline Phosphatase 79 U/L (38-126); Anion Gap 8 mmol/L (8-16); Aspartate Amino Transferase 33 U/L (14-36); Bilirubin,Total 0.5 mg/dL (0.2-1.3); Blood Urea Nitrogen 9 mg/dL (7-17); Calcium 9.5 mg/dL (8.4-10.2); Carbon Dioxide 25 mmol/L (22-30); Chloride 104 mmol/L (98-107); Estimated CRCL calculation 143 ml/min; Estimated Glomerular Filt Rate > 60; Glucose 91 mg/dL (65-110); Potassium 4.3 mmol/L (3.4-5.0); Sodium 137 mmol/L (137-145)
--- NOTE | 2022-10-07 12:19 | ECG_ITS ---
Measurements Intervals [place] Rate: 71 P: 48 [place]: 147 QRS: 67 QRSD: 82 T: 46 QT: 377 QTc: 412 Interpretive Statements SINUS RHYTHM COMPARED TO ECG 12/31/2019 08:55:33 NO SIGNIFICANT CHANGES Electronically Signed On 10-07-2022 13:43:43 CDT by Odessa Cruz M.D.
[2022-10-07 13:14] VITALS: BP 136/84; PULSE 86; RESP 17; O2SAT 97
== END 2022-10-07 13:14 | disposition home or self-care (01) ==
PROVIDERS: Emergency Provider Physician Assistant; PCP Nurse Practitioner Family
DX: H66.005 Acute suppurative otitis media without spontaneous rupture of ear drum, recurrent, left ear (principal); S09.90XA Unspecified injury of head, initial encounter; G40.909 Epilepsy, unspecified, not intractable, without status epilepticus; J45.909 Unspecified asthma, uncomplicated; K21.9 Gastro-esophageal reflux disease without esophagitis; E78.5 Hyperlipidemia, unspecified; K58.9 Irritable bowel syndrome, unspecified; M19.90 Unspecified osteoarthritis, unspecified site; E66.9 Obesity, unspecified; Z68.37 Body mass index [BMI] 37.0-37.9, adult; E55.9 Vitamin D deficiency, unspecified; F17.210 Nicotine dependence, cigarettes, uncomplicated; Z90.710 Acquired absence of both cervix and uterus; W10.9XXA Fall (on) (from) unspecified stairs and steps, initial encounter
CPT/HCPCS: 36415; 70470; 80053; 85025; 93005; 96361; 96374; 99284; A9270; J2405; J7030; Q9967

== ENCOUNTER 2023-03-02 08:03 | Emergency (ER) | payer BC, SELFPAY ==
--- NOTE | 2023-03-02 08:09 | ED.URI ---
HPI - URI/Sore Throat General Chief Complaint: Upper Respiratory Infection Stated Complaint: Sore Throat,Bilateral Ear Irritation Source: patient and RN notes reviewed History of Present Illness HPI Narrative: 37-year-old female presents to urgent care with complaints of sore throat and bilateral ear pain and pressure. Patient states she is having these symptoms for last 10 days. Patient states her right ear is More painful and her left ear has more pressure. patient states she had fever the 1st 3 days. Patient reports congestion as well. Denies any SOB, chest pain, N/V/D. Related Data Allergies Allergy/AdvReac Type Severity Reaction Status Date / Time amoxicillin Allergy Intermediate Rash Verified 10/07/22 11:12 clindamycin Allergy Intermediate hives Verified 10/07/22 11:12 Penicillins Allergy Intermediate Hives / Verified 10/07/22 11:12 Red Face azithromycin AdvReac Mild diarrhea Verified 10/07/22 11:12 Review of Systems Review of Systems: Pertinent positives and pertinent negatives per HPI. [facility] Past Medical History Medical History Anxiety Arthritis Asthma BMI 32.0-32.9,adult BMI 35.0-35.9,adult BMI 37.0-37.9, adult Depression Dog bite of chin Dog bite of extremity Dog bite of forearm Eczema Elevated fasting glucose Fatty liver Frequent headaches GERD (gastroesophageal reflux disease) Hyperlipidemia Hypersomnia IBS (irritable bowel syndrome) Leukocytosis Menopausal symptoms Obesity (BMI 30-39.9) Pain, joint, multiple sites Perforation of left tympanic membrane (~02/2022) multiple scars, small perforation left TM Rhinitis with nasal obstructive symptoms on the right Seasonal allergies Seizure disorder Tobacco abuse Vitamin D deficiency Surgical History Surgical History History of hysterectomy History of rotator cuff surgery Family History Family History Father Diabetes mellitus Hypertension Mother Asthma Diabetes mellitus Hypertension Depression Heart disease Sibling Asthma Grandparent Diabetes mellitus Hypertension Heart disease Grandparent Hypertension Heart disease Other Obstructive sleep apnea Social History Social History Smoking packs per day: 1 Smoking cigarettes per day: 20.0 Years smoked: 25 Smoking pack-years: 25.00 Smoking status: Smoker, status unknown Tobacco type: cigarettes Second hand tobacco smoke exposure: No Additional smoking assessment comments: 1 ppd x 22 years Alcohol intake: current Drinks per week: 1 Alcohol use details: 1 drink every 3 weeks Substance use: never Substance use type: does not use Lack of Transportation: No Lack of Food: Never True Current Housing: I Have Housing Concerned About Future Housing: No Difficulty Paying Gas/Electric Bills: No Difficulty Paying for Meds: No Currently Unemployed: No Education: Trade/Vocational Certificate Difficulty w/ Childcare or Family Care: No Living arrangements: with family Spiritual care concerns: No Comments At the time of my signature, I reviewed and agree with the nursing past medical, surgical, social, and family history. There is no relevant family history pertinent to the patient complaint. Exam Narrative: GENERAL: This is a well-nourished, well-developed patient, in no apparent distress. HEAD: normocephalic, atraumatic. EYES: Sclera clear/white. Vision is grossly intact. EARS: External ears normal, auditory canals clear and without drainage, Left TM normal without perforation. Hearing grossly intact. Right TM erythremic and bulging. NOSE: External nose normal with no obvious nasal discharge, nares without redness, no rhinorrhea. THROAT: Mucous membranes moist, posterior pharynx clear. NE
[2023-03-02 08:10] VITALS: BP 130/83; PULSE 87; RESP 16; TEMP 36.4; O2SAT 99
== END 2023-03-02 08:39 | disposition home or self-care (01) ==
PROVIDERS: Emergency Provider Nurse Practitioner Family; PCP Nurse Practitioner Family
DX: H66.90 Otitis media, unspecified, unspecified ear (principal); E78.5 Hyperlipidemia, unspecified; F17.210 Nicotine dependence, cigarettes, uncomplicated
CPT/HCPCS: 87081; 87880; 99213; G0463

== ENCOUNTER 2023-03-03 12:21 | Outpatient (CLI) | payer BC, SELFPAY ==
--- NOTE | ~2023-03-03 | MMUS_ITS ---
EXAMINATION: MM diagnostic bam BI w penny, US breast BI limited HISTORY: Palpable lumps in the upper inner quadrant of the right breast and lower inner quadrant of t he left breast. TECHNIQUE: Craniocaudal, mediolateral, and mediolateral oblique 3-D tomosynthesis images of the breas ts were performed and synthetic 2-D images were generated. CAD analysis was submitted and interpreted . High resolution limited bilateral breast ultrasound was performed. COMPARISON: None, baseline BREAST PARENCHYMAL COMPOSITION: There are scattered areas of fibroglandular density. FINDINGS: MAMMOGRAPHIC FINDINGS: No suspicious mass, calcification, or architectural distortion are identified in either breast to sug gest malignancy. No mammographic correlate is identified for the reported palpable abnormality of eit her breast. ULTRASOUND: No sonographic correlate is identified for the reported palpable abnormality of either breast. No bruce picious cystic or solid mass is identified. IMPRESSION: 1. No specific mammographic or sonographic correlate is identified for the reported palpable abnormal ity of concern in either breast. Further evaluation at this time should be based on clinical assessme nt. Continued follow-up physical examination is recommended. 2. Recommend routine screening mammography beginning at age 40. BI-RADS Category 1: Negative Reviewed, dictated and finalized at location A. MECHANICAL ENGINEER IMPRESSION: 1. No specific mammographic or sonographic correlate is identified for the repo rted palpable abnormality of concern in either breast. Further evaluation at th is time should be based on clinical assessment. Continued follow-up physical ex amination is recommended. 2. Recommend routine screening mammography beginning at age 40. BI-RADS Category 1: Negative
== END 2023-03-03 12:22 | disposition home or self-care (01) ==
PROVIDERS: PCP Nurse Practitioner Family; Visit Provider Nurse Practitioner Obstetrics & Gynecology
DX: N63.0 Unspecified lump in unspecified breast (principal); N64.4 Mastodynia
CPT/HCPCS: 76642; 77062; 77066; G0279

== ENCOUNTER 2023-07-12 11:13 | Emergency (ER) | payer OTHER, SELFPAY ==
--- NOTE | ~2023-07-12 | XR_ITS ---
EXAMINATION: XR knee RT min 4V DATE: 07/12/2023 12:07 INDICATION: Fall with right knee injury TECHNIQUE: Anteroposterior, sunrise, oblique and crosstable lateral views of the right knee were obta ined COMPARISON: None. FINDINGS: Alignment is normal. No fracture. Joint spaces appear normal on nonweightbearing imaging. No joint e ffusion/layering lipohemarthrosis. Mild prepatellar soft tissue swelling. IMPRESSION: 1. Mild prepatellar soft tissue swelling. No joint effusion or osseous abnormality. Reviewed, dictated and finalized at location A. IMPRESSION: 1. Mild prepatellar soft tissue swelling. No joint effusion or osseous abnormal ity.
--- NOTE | ~2023-07-12 | XR_ITS ---
XR ankle LT min 3V 07/12/2023 12:07 INDICATION: Left ankle pain PROCEDURE: 4 views left ankle COMPARISON: No prior studies for comparison. FINDINGS: Fracture, dislocation or subluxation is not identified. The soft tissues appear within norm al limits. No foreign bodies are identified. There is a degenerative calcaneal enthesophyte. IMPRESSION: 1: NO ACUTE BONE OR JOINT ABNORMALITY IDENTIFIED. Reviewed, dictated and finalized at location L.
[2023-07-12 11:40] VITALS: BP 132/90; PULSE 88; RESP 16; TEMP 36.8; O2SAT 99
--- NOTE | 2023-07-12 12:09 | ED.LOWEXIN ---
HPI - Extremity Injury (Lower) General Chief Complaint: Extremity Injury, Lower Stated Complaint: left ankle pain/knee pain d/t fall Time Seen by Provider: 07/12/23 11:46 Source: patient Mode of arrival: wheelchair Limitations: no limitations History of Present Illness HPI Narrative: This is a 38 year old female that presents to the ER after a fall today. Reports she tripped and fell and twisted her left ankle. Reports landing on her right knee. Reports pain to the right knee and left ankle. Decreased ROM due to pain. Did not hit her head or lose consciousness. Denies numbness. Related Data Allergies Allergy/AdvReac Type Severity Reaction Status Date / Time amoxicillin Allergy Intermediate Rash Verified 07/12/23 11:24 clindamycin Allergy Intermediate hives Verified 07/12/23 11:24 Penicillins Allergy Intermediate Hives / Verified 07/12/23 11:24 Red Face azithromycin AdvReac Mild diarrhea Verified 07/12/23 11:24 Review of Systems Review of Systems: CONSTITUTIONAL: Denies fever MUSCULOSKELETAL: Reports joint pain, and myalgia. NEUROLOGIC: Denies numbness, or weakness. All systems reviewed & are unremarkable except as noted in HPI and below PMFSH Past Medical History Medical History Anxiety Arthritis Asthma BMI 32.0-32.9,adult BMI 35.0-35.9,adult BMI 37.0-37.9, adult Depression Dog bite of chin Dog bite of extremity Dog bite of forearm Eczema Elevated fasting glucose Fatty liver Frequent headaches GERD (gastroesophageal reflux disease) Hyperlipidemia Hypersomnia IBS (irritable bowel syndrome) Leukocytosis Menopausal symptoms Obesity (BMI 30-39.9) Pain, joint, multiple sites Perforation of left tympanic membrane (~02/2022) multiple scars, small perforation left TM Rhinitis with nasal obstructive symptoms on the right Seasonal allergies Seizure disorder Tobacco abuse Vitamin D deficiency Surgical History Surgical History History of hysterectomy History of rotator cuff surgery Family History Family History Father Diabetes mellitus Hypertension Mother Asthma Diabetes mellitus Hypertension Depression Heart disease Sibling Asthma Grandparent Diabetes mellitus Hypertension Heart disease Grandparent Hypertension Heart disease Other Obstructive sleep apnea Social History Social History Smoking packs per day: 1 Smoking cigarettes per day: 20.0 Years smoked: 25 Smoking pack-years: 25.00 Smoking status: Smoker, status unknown Tobacco type: cigarettes Second hand tobacco smoke exposure: No Additional smoking assessment comments: 1 ppd x 22 years Alcohol intake: current Drinks per week: 1 Alcohol use details: 1 drink every 3 weeks Substance use: never Substance use type: does not use Lack of Transportation: No Lack of Food: Never True Current Housing: I Have Housing Concerned About Future Housing: No Difficulty Paying Gas/Electric Bills: No Difficulty Paying for Meds: No Currently Unemployed: No Education: Trade/Vocational Certificate Difficulty w/ Childcare or Family Care: No Living arrangements: with family Spiritual care concerns: No Exam Narrative: GENERAL: Well-appearing, well-nourished, and in no acute distress. HEAD: Normocephalic, atraumatic. EYES: EOMI. EXTREMITIES: Decreased active ROM in the left ankle and right knee due to pain. Mild edema about the right patella with superficial abrasion overlying. No obvious deformities. Normal DP pulses. Normal sensation SKIN: Warm, dry, no rash. NEURO: No focal deficits. Alert and oriented x3. PSYCH: Normal mood and affect Course Course Emergency Course: Patient updated on workup and agrees with plan of care Vital Signs Vital signs:
[2023-07-12] MEDS: IBUPROFEN 600 MG TABLET PO (12:13)
[2023-07-12] MEDS: TETANUS,DIPHTHERIA,AC PERTUSSIS ADULT (0.5 ML) BOOSTRIX IM (12:13)
== END 2023-07-12 14:03 | disposition home or self-care (01) ==
PROVIDERS: Emergency Provider Physician Assistant; PCP Nurse Practitioner Family
DX: S93.402A Sprain of unspecified ligament of left ankle, initial encounter (principal); S80.01XA Contusion of right knee, initial encounter; F17.210 Nicotine dependence, cigarettes, uncomplicated; F41.9 Anxiety disorder, unspecified; M19.90 Unspecified osteoarthritis, unspecified site; J45.909 Unspecified asthma, uncomplicated; F32.A Depression, unspecified; K21.9 Gastro-esophageal reflux disease without esophagitis; W01.0XXA Fall on same level from slipping, tripping and stumbling without subsequent striking against object, initial encounter; Z23 Encounter for immunization
CPT/HCPCS: 73564; 73610; 90471; 90715; 99284; A9270